=== PATIENT | female | born 1945 | race Caucasian/White ===

== ENCOUNTER 2017-08-16 11:48 | Emergency (ER) | payer MEDICARE, OTHER ==
[~2017-08-16] VITALS: Wt 67.6 kg
[2017-08-16] MEDS ORDERED: ZOLPIDEM TART10 MG PO (12:02)
[2017-08-16] MEDS ORDERED: CELEXA10 MG PO (12:03)
[2017-08-16] MEDS ORDERED: GLUCOPHAGE500 MG PO (12:05)
[2017-08-16] MEDS ORDERED: Tobrex Ophth S2.5 ML OPH (12:22)
== END 2017-08-16 13:32 | disposition home or self-care (01) ==
LOC: ED 11:48
DX: S05.01XA Injury of conjunctiva and corneal abrasion without foreign body, right eye, initial encounter (principal); R03.0 Elevated blood-pressure reading, without diagnosis of hypertension; Z88.5 Allergy status to narcotic agent; W51.XXXA Accidental striking against or bumped into by another person, initial encounter; Y93.89 Activity, other specified; Y92.89 Other specified places as the place of occurrence of the external cause; Y99.8 Other external cause status

== ENCOUNTER 2021-03-25 11:39 | Emergency (ER) | payer MEDICARE ==
[~2021-03-25] VITALS: Ht 162.5 cm; Wt 66.7 kg
[~2021-03-25 11:39] MED LIST: CELEXA10 MG PO; GLUCOPHAGE500 MG PO; Tobrex Ophth S2.5 ML OPH; ZOLPIDEM TART10 MG PO
[2021-03-25 12:55] LABS: BILIRUBIN Negative (Negative); BLOOD Negative (Negative); CLARITY Cloudy (Clear); COLOR Yellow (Yellow); GLUCOSE Negative (Negative); KETONE Negative (Negative); LEUKO ESTERASE 2+ (Negative); NITRITE Positive (Negative); PH 7.5 (4.5-8.0)
[2021-03-25 12:56] LABS: BASO % 0.5 % (0.0-1.0); EOS % 0.6 % (1.0-4.0); HEMATOCRIT 41.4 % (37.0-47.0); LYMPH # 1.3 10*3/uL (1.3-4.4); LYMPH % 19.6 % (27.0-41.0); MEAN CELL VOLUME 89.2 fl (81.0-99.0); MEAN CORPUSCULAR HGB 28.4 pg (27.0-31.0); MEAN CORPUSCULAR HGB CONC 31.9 g/dl (33.0-37.0); MEAN PLATELET VOLUME 10.4 fl (9.6-12.3); MONO # 0.4 10*3/uL (0.1-1.0); MONO % 5.7 % (3.0-9.0); NEUT # 4.8 10*3/uL (2.3-7.9); NEUT % 73.4 % (47.0-73.0); PLATELET COUNT AUTOMATED 244 10*3/uL (130-400); RED BLOOD COUNT 4.64 10*6/uL (4.10-5.10); RED CELL DISTRI WIDTH 14.3 % (0-14.5); WHITE BLOOD COUNT 6.5 10*3/uL (4.8-10.8)
[2021-03-25 13:13] LABS: BACTERIA 4+; WBC 41-50 wbc/hpf (0-5)
[2021-03-25 13:14] LABS: ALBUMIN 3.8 gm/dl (3.1-4.5); ALKALINE PHOSPHATASE 117 U/L (45-117); BUN 21 mg/dl (7-24); CHLORIDE 109 mmol/L (98-107); CREATININE 0.84 mg/dL (0.55-1.02); LIPASE 174 U/L (73-393); POTASSIUM 4.4 mmol/L (3.5-5.1); SGOT/AST 10 IU/L (3-35); SGPT/ALT 17 U/L (12-78); SODIUM 141 mmol/L (136-145); TOTAL PROTEIN 7.1 gm/dL (6.4-8.2)
[2021-03-25] MEDS ORDERED: CEFUROXIME AXE500 MG PO ×2 (13:58→14:06)
== END 2021-03-25 14:28 | disposition home or self-care (01) ==
LOC: ED 11:39
PROVIDERS: Nurse Practitioner Family
DX: T63.451A Toxic effect of venom of hornets, accidental (unintentional), initial encounter (principal); Z20.822 Contact with and (suspected) exposure to COVID-19; R53.83 Other fatigue; N39.0 Urinary tract infection, site not specified; R19.7 Diarrhea, unspecified; J02.9 Acute pharyngitis, unspecified; R09.89 Other specified symptoms and signs involving the circulatory and respiratory systems; I10 Essential (primary) hypertension; E11.9 Type 2 diabetes mellitus without complications; Z98.84 Bariatric surgery status; Z90.711 Acquired absence of uterus with remaining cervical stump; Z90.722 Acquired absence of ovaries, bilateral; Z88.5 Allergy status to narcotic agent; Z79.2 Long term (current) use of antibiotics; Z79.899 Other long term (current) drug therapy; Z98.1 Arthrodesis status; Z96.1 Presence of intraocular lens; Y92.89 Other specified places as the place of occurrence of the external cause